=== PATIENT | female | born 1980 | race Caucasian/White ===

== ENCOUNTER 2018-10-24 22:09 | Emergency (ER) | payer OTHER ==
[2018-10-24 22:18] VITALS: BP 117/76; PULSE 87; TEMP 98.4; BMI 24.4
--- NOTE | 2018-10-24 22:39 | PDOC ---
History of Present Illness - General Chief Complaint: Urinary Problem Stated Complaint: UTI Time Seen by Provider: 10/24/18 22:36 History Source: Patient - History of Present Illness Initial Comments: 10/24/18 23:32 37-year-old female complaining of burning on urination and itchiness to the vaginal area for the last 3 days denies fever, abdominal pain, chills, nausea, vomiting, diarrhea, constipation. Denies new partner and exposure to STI. Patient reports that she was taking MetroGel for bacterial vaginosis for 1 week , patient also reports using a perineal wash. Past History - Past Medical History Allergies/Adverse Reactions: Allergies Allergy/AdvReac Type Severity Reaction Status Date / Time No Known Allergies Allergy Verified 04/10/18 17:38 Home Medications: Ambulatory Orders Cephalexin Monohydrate [Keflex -] 500 mg PO BID #20 capsule 10/24/18 Miconazole Nitrate/Zinc Ox/Pet [Ukpsxuimqy-Birl-Htseh 0.25-15%] 1 gm TP BID #1 oint...g. 10/24/18 Anemia: Yes Asthma: Yes COPD: No - Reproductive History Dysfunctional Uterine Bleeding: Yes (last week) - Immunization History Immunization Up to Date: Yes - Suicide/Smoking/Psychosocial Hx Smoking History: Never smoked Have you smoked in the past 12 months: No Number of Cigarettes Smoked Daily: 0 Hx Alcohol Use: No Drug/Substance Use Hx: No Substance Use Type: None Hx Substance Use Treatment: No Review of Systems - Review of Systems Able to Perform ROS?: Yes Is the patient limited Korean proficient: No Constitutional: No: Symptoms Reported, See HPI, Chills, Diaphoresis, Fever, Loss of Appetite, Malaise, Night Sweats, Weakness, Weight Stable, Unintentional Wgt. Loss, Unexplained wgt Loss, Other : Yes: Dysuria, Frequency. No: Symptoms Reported, See HPI, Burning, Discharge , Flank Pain, Hematuria, Incontinence, Pain, Urgency, Testicular Mass, Testicular Swelling, Lesions, Testicular Pain, Other Musculoskeletal: No: Symptoms Reported, See HPI, Back Pain, Gout, Joint Pain, Joint Swelling, Muscle Pain, Muscle Weakness, Neck Pain, Joint Stiffness, Other *Physical Exam - Vital Signs Last Vital Signs Temp Pulse Resp BP Pulse Ox 98.4 F 87 18 117/76 98 10/24/18 22:16 10/24/18 22:16 10/24/18 22:16 10/24/18 22:16 10/24/18 22:16 - Physical Exam General Appearance: Yes: Appropriately Dressed Female Pelvic Exam: positive: normal external exam, other (vaginal irritation) Gastrointestinal/Abdominal: positive: Normal Bowel Sounds, Soft. negative: Tender Musculoskeletal: negative: CVA Tenderness Integumentary: positive: Normal Color, Dry, Warm Neurologic: positive: Fully Oriented, Alert, Normal Mood/Affect Moderate Sedation - Procedure Monitoring Vital Signs: Procedure Monitoring Vital Signs Temperature 98.4 F 10/24/18 22:16 Pulse Rate 87 10/24/18 22:16 Respiratory Rate 18 10/24/18 22:16 Blood Pressure 117/76 10/24/18 22:16 O2 Sat by Pulse Oximetry (%) 98 10/24/18 22:16 Progress Note - Progress Note Progress Note: A: acute vaginitis; uti P: ua ucx antifungal cream cephalexin *DC/Admit/Observation/Transfer Diagnosis at time of Disposition: UTI (urinary tract infection) Qualifiers: Urinary tract infection type: acute cystitis Hematuria presence: without hematuria Qualified Code(s): N30.00 - Acute cystitis without hematuria Vaginitis Qualifiers: Chronicity: acute Qualified Code(s): N76.0 - Acute vaginitis - Discharge Dispostion Disposition: HOME Condition at time of disposition: Good - Prescriptions Prescriptions: Cephalexin Monohydrate [Keflex -] 500 mg PO BID #20 capsule Miconazole Nitrate/Zinc Ox/Pet [Bptuotsfbb-Nbmi-Cggkc 0.25-15%] 1 gm TP BID #1 oint...g. - Referrals Referrals: Keyonna Bonilla MD [Primary Care Provider] - - Patient Instructions Printed Discharge Instructions: Urinary Tract Infection Additional Instructions: drink plenty off fluids take cephalexin as prescribed apply ointment to the vaginal area twice daily as prescribed follow up with your doctor as soon as possible return to the ER if symptoms worsen. - Post Discharge Activity
[2018-10-24 22:45] LABS: URINE APPEARANCE SLCLOUDY; URINE BILIRUBIN NEGATIVE (<2.0 mg/dL); URINE COLOR YELLOW; URINE GLUCOSE (UA) NEGATIVE (NEGATIVE); URINE KETONE NEGATIVE (NEGATIVE); URINE LEUK ESTERASE 3+ (NEGATIVE); URINE NITRITE NEGATIVE (NEGATIVE); URINE PROTEIN 1+ (NEGATIVE)
[2018-10-24 22:47] LABS: HCG,QUALITATIVE URINE Negative
[2018-10-24 22:52] LABS: EPI CELLS RARE /HPF (FEW); URINE MUCUS FEW
[2018-10-24] MEDS ORDERED: CEPHALEXIN MONOHYDRATE 500 MG CAPSULE (UD) PO ONE (23:46)
[2018-10-25] MEDS ORDERED: CEPHALEXIN MONOHYDRATE 500 MG CAPSULE (UD) ONE (00:07)
== END 2018-10-25 00:03 | disposition home or self-care (01) ==
LOC: JER 22:09
DX: N30.00 Acute cystitis without hematuria (principal); N76.0 Acute vaginitis
CPT/HCPCS: 81003; 81015; 84703; 87086; 99281-25

== ENCOUNTER 2019-01-16 21:40 | Emergency (ER) | payer OTHER ==
--- NOTE | 2019-01-16 21:47 | PDOC ---
Rapid Medical Evaluation Time Seen by Provider: 01/16/19 21:47 Medical Evaluation: Allergies Allergy/AdvReac Type Severity Reaction Status Date / Time No Known Allergies Allergy Verified 04/10/18 17:38 01/16/19 21:47 I have performed a brief in-person evaluation of this patient. The patient presents with a chief complaint of: left pelvic pain pt had procedure at urologist today, worried because she had ectopic in past Pertinent physical exam findings:stable and in NAD, non-focal I have ordered the following: urine preg, ua, culture The patient will proceed to the ED for further evaluation. 01/16/19 21:53
[2019-01-16 21:53] VITALS: BP 146/89; PULSE 79; TEMP 98; BMI 25.4
--- NOTE | 2019-01-16 22:55 | PDOC ---
*Physical Exam - Vital Signs Last Vital Signs Temp Pulse Resp BP Pulse Ox 98.0 F 79 16 146/89 99 01/16/19 21:50 01/16/19 21:50 01/16/19 21:50 01/16/19 21:50 01/16/19 21:50 ED Treatment Course - LABORATORY CBC & Chemistry Diagram: 01/17/19 00:16 01/17/19 00:16 Medical Decision Making - Medical Decision Making 01/16/19 22:55 Patient seen by the advanced practice provider under my direct supervision. Ancillary testing reviewed as necessary. I agree with plan as outlined by the advanced practice provider. *DC/Admit/Observation/Transfer Diagnosis at time of Disposition: Left lower quadrant abdominal pain of unknown etiology - Discharge Dispostion Disposition: HOME Condition at time of disposition: Stable - Referrals Referrals: Keyonna Bonilla MD [Primary Care Provider] - 2 Days - Patient Instructions Printed Discharge Instructions: DI for Abdominal Pain-Adult Additional Instructions: Thank you for choosing [facility]. It was a pleasure taking care of you. Your CT scan of your abdomen/pelvis showed no acute findings Your labs showed that you are anemic - please be sure to take your iron pills Follow-up with your doctor in 2 days Return to the Emergency Department if your symptoms worsen or persist or have other concerning symptoms. - Post Discharge Activity
--- NOTE | 2019-01-16 23:09 | PDOC ---
History of Present Illness - General Chief Complaint: Pain Stated Complaint: PELVIC PAIN Time Seen by Provider: 01/16/19 21:47 History Source: Patient Exam Limitations: Language Barrier (hair cutter ID#[id number]) Past History - Past Medical History Allergies/Adverse Reactions: Allergies Allergy/AdvReac Type Severity Reaction Status Date / Time No Known Allergies Allergy Verified 04/10/18 17:38 Home Medications: Ambulatory Orders Cephalexin Monohydrate [Keflex -] 500 mg PO BID #20 capsule 10/24/18 Miconazole Nitrate/Zinc Ox/Pet [Xmhhmpzgpp-Ncif-Opyqp 0.25-15%] 1 gm TP BID #1 oint...g. 10/24/18 Anemia: Yes Asthma: Yes COPD: No - Reproductive History Dysfunctional Uterine Bleeding: Yes (last week) - Immunization History Immunization Up to Date: Yes - Suicide/Smoking/Psychosocial Hx Smoking History: Unknown if ever smoked Have you smoked in the past 12 months: No Number of Cigarettes Smoked Daily: 0 Information on smoking cessation initiated: No Hx Alcohol Use: No Drug/Substance Use Hx: No Substance Use Type: None Hx Substance Use Treatment: No *Physical Exam - Vital Signs Last Vital Signs Temp Pulse Resp BP Pulse Ox 98.0 F 79 16 146/89 99 01/16/19 21:50 01/16/19 21:50 01/16/19 21:50 01/16/19 21:50 01/16/19 21:50 - Physical Exam General Appearance: No: Apparent Distress Respiratory/Chest: positive: Lungs Clear, Normal Breath Sounds. negative: Respiratory Distress Cardiovascular: positive: Regular Rhythm, Regular Rate, S1, S2. negative: Murmur Gastrointestinal/Abdominal: positive: Normal Bowel Sounds, Tender (mild along LLQ), Soft. negative: Distended, Guarding, Rebound Musculoskeletal: negative: CVA Tenderness Integumentary: positive: Normal Color Neurologic: positive: Alert, Normal Mood/Affect ED Treatment Course - LABORATORY CBC & Chemistry Diagram: 01/17/19 00:16 01/17/19 00:16 Medical Decision Making - Medical Decision Making 38 y/o F hx of asthma, anemia, B/L tubal ligation presents with LLQ abd pain from today after getting cystoscopy done by Dr. Lange for "elevated bladder." Also mentions having some dysuria as well. Denies fever, sob, cp, n/v/d, vaginal discharge, hematuria. Possible UTI; also consider bladder perforation given recent procedure D/W Dr. Lange - agrees with CT A/P to further assess Plan: labs, UA, UCx, UCG, CT A/P 01/16/19 23:12 Labs show anemia (seen prior as well) CT A/P shows no acute findings Patient stable for dc 01/17/19 01:32 *DC/Admit/Observation/Transfer Diagnosis at time of Disposition: Left lower quadrant abdominal pain of unknown etiology - Discharge Dispostion Disposition: HOME Condition at time of disposition: Stable Decision to Admit order: No - Referrals Referrals: Keyonna Bonilla MD [Primary Care Provider] - 2 Days - Patient Instructions Printed Discharge Instructions: DI for Abdominal Pain-Adult Additional Instructions: Thank you for choosing [facility]. It was a pleasure taking care of you. Your CT scan of your abdomen/pelvis showed no acute findings Your labs showed that you are anemic - please be sure to take your iron pills Follow-up with your doctor in 2 days Return to the Emergency Department if your symptoms worsen or persist or have other concerning symptoms. - Post Discharge Activity
[2019-01-17 00:24] LABS: EPI CELLS 1.7 /HPF (0-5/HPF); HCG,QUALITATIVE URINE Negative; HYALINE CASTS 3 /lpf (0-8); URINE APPEARANCE CLEAR; URINE BACTERIA 1.7 /hpf (NEGATIVE); URINE BILIRUBIN NEGATIVE (NEGATIVE); URINE COLOR YELLOW; URINE GLUCOSE (UA) NEGATIVE (NEGATIVE); URINE KETONE TRACE (NEGATIVE); URINE LEUK ESTERASE NEGATIVE (NEGATIVE); URINE NITRITE NEGATIVE (NEGATIVE); URINE PROTEIN NEGATIVE (NEGATIVE); URINE RBC 6 /hpf (0-4); URINE WBC 1 /hpf (0-5)
[2019-01-17 00:32] LABS: BASO % 0.8 % (0-2.0); EOS % 0.9 % (0-4.5); HEMATOCRIT 28.3 % (32.4-45.2); HEMOGLOBIN 8.4 GM/dL (10.7-15.3); LYMPH % 41.2 % (8-40); MCHC 29.7 g/dl (32.0-36.0); MEAN CELL VOLUME 66.8 fl (80-96); MEAN PLT VOLUME 6.8 fl (7.5-11.1); NEUT % 48.1 % (42.8-82.8); PLATELET COUNT 434 K/MM3 (134-434); RBC 4.23 M/mm3 (3.60-5.2); RDW 22.1 % (11.6-15.6)
[2019-01-17 00:40] LABS: MCH 19.9 pg (25.7-33.7)
[2019-01-17 00:52] LABS: CALCIUM 8.7 mg/dL (8.5-10.1); CREATININE 0.4 mg/dL (0.55-1.3); POTASSIUM 3.8 mmol/L (3.5-5.1)
[2019-01-17 05:10] LABS: ANISOCYTOSIS 3+; PLATELET ESTIMATE SLT INCREASE
== END 2019-01-17 01:53 | disposition home or self-care (01) ==
LOC: JER 21:40
DX: R10.32 Left lower quadrant pain (principal); J45.909 Unspecified asthma, uncomplicated; N93.8 Other specified abnormal uterine and vaginal bleeding
CPT/HCPCS: 36415; 74177-TC; 80048; 81003; 84703; 85025; 87086; 99282-25

== ENCOUNTER 2019-09-12 09:40 | Emergency (ER) | payer OTHER ==
[2019-09-12 09:50] VITALS: BMI 21.9
[2019-09-12] MEDS ORDERED: ONDANSETRON 4 MG/2 ML VIAL IVPUSH ONE (10:00)
--- NOTE | 2019-09-12 10:09 | PDOC ---
History of Present Illness - General Chief Complaint: Pain, Acute Stated Complaint: ABDOMINAL PAIN Time Seen by Provider: 09/12/19 09:59 - History of Present Illness Initial Comments: 09/12/19 10:06 CHIEF COMPLAINT: lower abdomina pain x 1 day HISTORY OF PRESENT ILLNESS: 38 yo GP6 F with hx of asthma presents to ED with lower abdominal pain since last night. Patient reports the pain began approximately 30-40 s/p intercourse with her partner. She denies any back pain , vaginal discharge, hematuria, vomiting or diarrhea. Patient denies any history of STD. Last BM was yesterday and was normal. LMP 08/25/19. No recent travel or sick contacts. PAST MEDICAL HISTORY: Denies past medical history FAMILY HISTORY: Denies SOCIAL HISTORY: Denies tobacco, alcohol, illicit drug use. SURGICAL HISTORY: Denies ALLERGIES: No known drug allergies REVIEW OF SYSTEMS General/Constitutional: Denies fever or chills. Denies weakness, weight change. HEENT: Denies change in vision. Denies ear pain or discharge. Denies sore throat. Cardiovascular: Denies chest pain or shortness of breath. Respiratory: Denies cough, wheezing, or hemoptysis. Gastrointestinal: Nausea this morning, now resolved. Denies rectal bleeding. Genitourinary: "Strong urination and some pain." Denies frequency, or change in urination. Musculoskeletal: Denies joint or muscle swelling or pain. Denies neck or back pain. Skin and breasts: Denies rash or easy bruising. Neurologic: Denies headache, vertigo, loss of consciousness, or loss of sensation. Psychiatric: Denies depression or anxiety. PHYSICAL EXAM General Appearance: Well-appearing, appropriately dressed. No apparent distress , no intoxication. HEENT: EOMI, PERRLA, normal ENT inspection, normal voice, TMs normal, pharynx normal. No conjunctival pallor. No photophobia, scleral icterus. Neck: Supple. Trachea midline. No tenderness, rigidity, carotid bruit, stridor , lymphadenopathy, or thyromegaly. Respiratory/Chest: Lungs CTAB. No shortness of breath, chest tenderness, respiratory distress, accessory muscle use. No crackles, rales, rhonchi, stridor , wheezing, dullness Cardiovascular: RRR. S1, S2. No JVD, murmur, bradycardia, tachycardia. Vascular Pulses: Dorsalis-Pedis (R): 2+, Dorsalis-Pedis (L): 2+ Gastrointestinal/Abdominal: Normal bowel sounds. Abdomen soft, non-distended. No tenderness or rebound tenderness. No organomegaly, pulsatile mass, guarding , hernia, hepatomegaly, splenomegaly. Pelvic: External genitalia normal without lesions. Vaginal vault is clear without blood or discharge. Cervix is long and closed. No cervical motion tenderness. Uterus is nontender and normal in size. Adnexa are nontender and without masses. Musculoskeletal/Extremities: Normal inspection. FROM of all extremities, normal capillary refill. Pelvis Stable. No CVA tenderness. No tenderness to extremities, pedal edema, swelling, erythema or deformity. Integumentary: Appropriate color, dry, warm. No cyanosis, erythema, jaundice or rash Neurologic: skewer up II-XII intact. Fully oriented, alert. Appropriate mood/affect. Motor strength 5/5. No appreciable EOM palsy, facial droop or sensory deficit. Past History - Past Medical History Allergies/Adverse Reactions: Allergies Allergy/AdvReac Type Severity Reaction Status Date / Time No Known Allergies Allergy Verified 04/10/18 17:38 Home Medications: Ambulatory Orders Ascorbic Acid [Vitamin C -] 1 tab PO DAILY 09/12/19 Ferrous Sulfate 1 tab PO DAILY 09/12/19 Ibuprofen 600 mg PO QID #30 tablet 09/12/19 Anemia: Yes Asthma: Yes COPD: No - Reproductive History Dysfunctional Uterine Bleeding: Yes (last week) - Immunization History Immunization Up to Date: Yes - Psycho Social/Smoking Cessation Hx Smoking History: Never smoked Have you smoked in the past 12 months: No Number of Cigarettes Smoked Daily: 0 Information on smoking cessation initiated: No Hx Alcohol Use: No Drug/Substance Use Hx: No Substance Use Type: None Hx Substance Use Treatment: No *Physical Exam - Vital Signs Last Vital Signs Temp Pulse Resp BP Pulse Ox 98.2 F 87 18 132/82 97 09/12/19 09:47 09/12/19 09:47 09/12/19 09:47 09/12/19 09:47 09/12/19 09:47 Medical Decision Making - Medical Decision Making 09/12/19 12:10 38 yo GP6 F with hx of asthma presents to ED with lower abdominal pain since last night. -UA, UC, upreg urine negative. pelvic US negative for cysts/torsion. Patient reassessed, at this time she states she feels better. 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 Return precautions given, patient verbalized understanding and agrees to plan. Discharge - Discharge Information Problems reviewed: Yes Clinical Impression/Diagnosis: Pelvic pain, Dyspareunia Condition: Stable Disposition: HOME - Admission No - Additional Discharge Information Prescriptions: Ibuprofen 600 mg PO QID #30 tablet - Follow up/Referral Referrals: León Mott MD [Primary Care Provider] - Leonidas Childress MD [Staff Physician] - - Patient Discharge Instructions Patient Printed Discharge Instructions: DI for Pelvic Pain, DI for Dyspareunia Print Language: ESTONIAN - Post Discharge Activity
[2019-09-12 11:21] LABS: URINE APPEARANCE Clear; URINE BILIRUBIN Negative (NEGATIVE); URINE COLOR Yellow; URINE GLUCOSE (UA) Negative (NEGATIVE); URINE KETONE Trace (NEGATIVE); URINE LEUK ESTERASE Negative (NEGATIVE); URINE NITRITE Negative (NEGATIVE); URINE PROTEIN Trace (NEGATIVE)
[2019-09-12 12:37] LABS: URINE CRYSTALS NEGATIVE /hpf
[2019-09-12 12:38] LABS: EPI CELLS 3.1 /HPF (0-5/HPF); HYALINE CASTS 2.23 /lpf (0-8); URINE BACTERIA 37.2 /hpf (NEGATIVE); URINE RBC 1.6 /hpf (0-4); URINE WBC 0.8 /hpf (0-5)
[2019-09-12 14:54] VITALS: BP 131/81; PULSE 73; TEMP 97.8
== END 2019-09-12 14:50 | disposition home or self-care (01) ==
LOC: JER 09:40
DX: R10.2 Pelvic and perineal pain (principal); N94.10 Unspecified dyspareunia; J45.909 Unspecified asthma, uncomplicated
CPT/HCPCS: 36415; 76856-TC; 81003; 84703; 87077; 87086; 87491; 87591; 99282-25

== ENCOUNTER 2024-03-15 23:21 | Emergency (ER) | payer OTHER ==
[2024-03-15 23:26] VITALS: BP 127/88; PULSE 72; RESP 20; TEMP 98.4; BMI 22.8
[2024-03-16 01:21] LABS: EPI CELLS 9 /uL (0-25.1); HYALINE CASTS 0 /uL (0-3.1); PH,URINE 6.5 (5.0-8.0); URINE APPEARANCE CLEAR; URINE BACTERIA 101 /uL (0-1359); URINE BILIRUBIN NEGATIVE (NEGATIVE); URINE COLOR YELLOW; URINE GLUCOSE (UA) NEGATIVE (NEGATIVE); URINE KETONE NEGATIVE (NEGATIVE); URINE LEUK ESTERASE TRACE (NEGATIVE); URINE NITRITE NEGATIVE (NEGATIVE); URINE PROTEIN NEGATIVE (NEGATIVE); URINE RBC 28 /uL (0-23.9); URINE UROBILINOGEN 0.2 mg/dL (0.2-1.0); URINE WBC 18 /uL (0-25.8)
[2024-03-16] MEDS ORDERED: cefTRIAXone SODIUM 1 GM VIAL ONE (02:07)
[2024-03-16] MEDS ORDERED: LIDOCAINE HCL 1%, 10 MG/ML (20ML VIAL) ONE (02:07)
[2024-03-16 02:14] LABS: SYPHILIS W/ RPR CONF NON-REACTIVE (NONREACTIVE)
[2024-03-16 02:30] LABS: HIV INTERPRETATION NEGATIVE (NEGATIVE)
== END 2024-03-16 02:44 | disposition home or self-care (01) ==
LOC: JER 23:21
DX: K13.79 Other lesions of oral mucosa (principal); Z11.3 Encounter for screening for infections with a predominantly sexual mode of transmission; R30.0 Dysuria
CPT/HCPCS: 36415; 81003; 84703; 86780; 87086; 87389; 87491; 87536; 87591; 99284-25

== ENCOUNTER 2025-01-09 17:35 | Emergency (ER) | payer OTHER ==
[2025-01-09 17:41] VITALS: RESP 18; TEMP 98; BMI 21.4
[2025-01-09 18:54] LABS: ABSOLUTE IMMATURE GRANULOCYTES 0.01 x10^3/uL (0.0-0.031); BASOPHILS # 0.05 x10^3/uL (0.01-0.08); EOSINOPHIL % 1.8 % (0.7-5.8); EOSINOPHILS # 0.12 x10^3/uL (0.04-0.36); HEMATOCRIT 29.8 % (34.1-44.9); HEMOGLOBIN 7.9 g/dL (11.2-15.7); MCHC 26.5 g/dl (32.2-35.5); MEAN CELL VOLUME 60.9 fl (79.4-94.8); MONOCYTE # 0.63 x10^3/uL (0.24-0.86); MONOCYTE % 9.7 % (4.7-12.5); PLATELET COUNT 589 x10^3/uL (182-369); RDW 21.6 % (12.2-17.1)
[2025-01-09 19:07] LABS: ACTIVATED PTT 26.4 SECONDS (25.2-36.5)
[2025-01-09 19:08] LABS: POTASSIUM 3.4 mmol/L (3.5-5.1)
[2025-01-09 19:10] LABS: CALCIUM 9.3 mg/dL (8.5-10.1)
[2025-01-09 19:11] LABS: ALBUMIN 4.3 g/dl (3.4-5.0); BLOOD UREA NITROGEN 8.5 mg/dL (7-18)
[2025-01-09 19:14] LABS: CREATININE 0.6 mg/dL (0.55-1.3)
[2025-01-09 19:15] LABS: BILIRUBIN,TOTAL 0.3 mg/dL (0.2-1); TOT PROT 8.2 g/dl (6.4-8.2)
[2025-01-09 20:29] VITALS: BP 114/70; PULSE 84
[2025-01-09] MEDS: IRON SUCROSE INJECTION 300 MG in SODIUM CHLORIDE 235 ML IVPB ONE (21:09)
== END 2025-01-09 21:46 | disposition home or self-care (01) ==
LOC: JER 17:35
PROC: 3E033GC Introduction of Other Therapeutic Substance into Peripheral Vein, Percutaneous Approach (ICD-10-PCS; principal; 2025-01-09)
DX: D50.9 Iron deficiency anemia, unspecified (principal); R23.1 Pallor; R00.2 Palpitations; R42 Dizziness and giddiness; R07.9 Chest pain, unspecified
CPT/HCPCS: 36415; 80053; 84703; 85025; 85610; 85730; 86850; 86900; 86901; 93005; 93010; 99284-25; J1756